=== PATIENT | male | born 1985 | race Caucasian/White ===

== ENCOUNTER 2017-03-15 12:56 | Emergency (ER) | payer SELFPAY ==
[~2017-03-15] VITALS: Ht 182.9 cm; Wt 72.0 kg
[~2017-03-15 12:56] MED LIST: LORA-392 PO; MELO15TA2 PO; ROBA750T3 PO; Z.0.NO CURRENT MEDS
[2017-03-15 12:58] VITALS: BP 123/71; PULSE 69; RESP 16; TEMP 98.6; O2SAT 100
--- NOTE | 2017-03-15 16:24 | PD ---
HPI Chief Complaint: Psychiatric Symptoms Time Seen by Provider: 16:14 Travel History International Travel<30 days: No Contact w/Intl Traveler<30days: No Traveled to known affect area: No History of Present Illness HPI 31-year-old male presents to the emergency department for voluntary psychiatric evaluation. Patient was recently made homeless, has broken out with his girlfriend, and was not allowed on his grandmother's property as she called police. The [place] police recommended the patient come in voluntarily for evaluation. Patient currently denies suicidal or homicidal ideation he denies any significant medical issues. He denies alcohol or drug abuse. He takes no medications regularly. He is allergic to sertraline. 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) Psychiatric: Yes Reproductive: No Respiratory: No Tetanus Vaccination: > 5 Years Past Surgical History Neurologic Surgery: No Other Surgery: Yes Social History Alcohol Use: Yes Tobacco Use: Yes (05/31 PPD) Substance Use: Yes (MJ IV DILAUDID) Allergies-Medications (Allergen,Severity, Reaction): Coded Allergies: sertraline (Unverified Allergy, Severe, Shortness of Breath, 03/15/17) Reported Meds & Prescriptions Reported Meds & Active Scripts Active No Active Prescriptions or Reported Medications Review of Systems Except as stated in HPI: all other systems reviewed are Neg General / Constitutional: No: Fever Eyes: No: Visual changes HENT: No: Headaches Cardiovascular: No: Chest Pain or Discomfort Respiratory: No: Shortness of Breath Gastrointestinal: No: Abdominal Pain Genitourinary: No: Dysuria Musculoskeletal: No: Pain Skin: No Rash Neurologic: No: Weakness Psychiatric: No: Depression Endocrine: No: Polydipsia Hematologic/Lymphatic: No: Easy Bruising Physical Exam Narrative GENERAL: Patient appears no acute distress. SKIN: Warm and dry. Color. Normal turgor. HEAD: Atraumatic. Normocephalic. EYES: Pupils equal and round. No scleral icterus. No injection or drainage. ENT: No nasal bleeding or discharge. Mucous membranes pink and moist. Pharynx is clear. Airway is patent NECK: Trachea midline. Supple nontender. CARDIOVASCULAR: Regular rate and rhythm. No murmurs gallops or rubs. RESPIRATORY: No accessory muscle use. Clear to auscultation. Breath sounds equal bilaterally. GASTROINTESTINAL: Abdomen soft, non-tender, nondistended. Hepatic and splenic margins not palpable. MUSCULOSKELETAL: Extremities without clubbing, cyanosis, or edema. No obvious deformities. NEUROLOGICAL: Awake and alert. No obvious cranial nerve deficits. Motor grossly within normal limits. Five out of 5 muscle strength in the arms and legs. Normal speech. PSYCHIATRIC: Appropriate mood and affect; insight and judgment normal. Data Data Last Documented VS Vital Signs Date Time Temp Pulse Resp B/P (MAP) Pulse Ox O2 Delivery O2 Flow Rate FiO2 03/15/17 17:58 03/15/17 12:58 98.6 69 16 100 Room Air Orders Orders Complete Blood Count With Diff (03/15/17 16:14) Comprehensive Metabolic Panel (03/15/17 16:14) Psych Screen (03/15/17 16:14) Drug Screen, Random Urine (03/15/17 16:14) Labs Laboratory Tests Test 03/15/17 16:30 White Blood Count 7.9 TH/MM3 Red Blood Count 5.51 MIL/MM3 Hemoglobin 14.8 GM/DL Hematocrit 45.2 % Mean Corpuscular Volume 82.1 FL Mean Corpuscular Hemoglobin 26.9 PG Mean Corpuscular Hemoglobin Concent 32.7 % Red Cell Distribution Width 14.1 % Platelet Count 225 TH/MM3 Mean Platelet Volume 7.3 FL Neutrophils (%) (Auto) 47.4 % Lymphocytes (%) (Auto) 35.9 % Monocytes (%) (Auto) 12.4 % Eosinophils (%) (Auto) 3.7 % Basophils (%) (Auto) 0.6 % Neutrophils # (Auto) 3.8 TH/MM3 Lymphocytes # (Auto) 2.9 TH/MM3 Monocytes # (Auto) 1.0 TH/MM3 Eosinophils # (Auto) 0.3 TH/MM3 Basophils # (Auto) 0.0 TH/MM3 CBC Comment DIFF FINAL Differential Comment Blood Urea Nitrogen 20 MG/DL Creatinine 1.04 MG/DL Random Glucose 92 MG/DL Total Protein 7.6 GM/DL Albumin 3.7 GM/DL Calcium Level 9.2 MG/DL Alkaline Phosphatase 63 U/L Aspartate Amino Transf (AST/SGOT) 35 U/L Alanine Aminotransferase (ALT/SGPT) 77 U/L Total Bilirubin 0.5 MG/DL Sodium Level 136 MEQ/L Potassium Level 4.1 MEQ/L Chloride Level 103 MEQ/L Carbon Dioxide Level 24.1 MEQ/L Anion Gap 9 MEQ/L Estimat Glomerular Filtration Rate 84 ML/MIN MDM Medical Decision Making Medical Screen Exam Complete: Yes Emergency Medical Condition: Yes Differential Diagnosis Mood disorder. Depression. Anger issues. Narrative Course Patient is medically stable. Patient is here voluntarily for psychiatric evaluation Labs are ordered per protocol. Psychiatric eval is ordered. Patient is medically cleared for psychiatric evaluation. Patient left the ED prior to psychiatric eval at 1745. As the patient is voluntary he'll be made AMA. Diagnosis Primary Impression: Medical clearance for psychiatric admission Scripts No Active Prescriptions or Reported Meds Disposition: 07 AGAINST MEDICAL ADVICE Condition: Stable Aj Vee Mar 15, 2017 16:24
[2017-03-15 16:48] LABS: AUTOMATED NEUTROPHIL # 3.8 TH/MM3 (1.8-7.7); BASOPHIL % 0.6 % (0.0-2.0); EOSINOPHIL # 0.3 TH/MM3 (0-0.4); EOSINOPHIL % 3.7 % (0.0-4.0); HEMATOCRIT 45.2 % (39.0-51.0); HEMO FLAGS DIFF FINAL; LYMPH % 35.9 % (9.0-44.0); LYMPHOCYTE # 2.9 TH/MM3 (1.0-4.8); MEAN CELL VOLUME 82.1 FL (80.0-100.0); MEAN CORPUSCULAR HEMOGLOBIN 26.9 PG (27.0-34.0); MEAN CORPUSCULAR HGB CONC 32.7 % (32.0-36.0); MONO % 12.4 % (0.0-8.0); NEUT % 47.4 % (16.0-70.0); PLATELET COUNT 225 TH/MM3 (150-450); RED BLOOD COUNT 5.51 MIL/MM3 (4.50-5.90); RED CELL DISTRIBUTION WIDTH 14.1 % (11.6-17.2); WHITE BLOOD COUNT 7.9 TH/MM3 (4.0-11.0)
[2017-03-15 17:04] LABS: ANION GAP 9 MEQ/L (5-15); AST (GOT) 35 U/L (15-37); BICARBONATE 24.1 MEQ/L (21.0-32.0); BLOOD UREA NITROGEN 20 MG/DL (7-18); CHLORIDE 103 MEQ/L (98-107); GLOMERULAR FILTRATION RATE 84 ML/MIN (>89); POTASSIUM 4.1 MEQ/L (3.5-5.1); SODIUM (NA) 136 MEQ/L (136-145)
[2017-03-15 17:05] LABS: ALT (GPT) 77 U/L (12-78)
[2017-03-15 17:07] LABS: ALKALINE PHOSPHATASE 63 U/L (45-117); TOTAL BILIRUBIN ADULT 0.5 MG/DL (0.2-1.0)
== END 2017-03-15 17:59 | disposition left against medical advice (07) ==
LOC: NEPC 12:56
DX: Z53.21 Procedure and treatment not carried out due to patient leaving prior to being seen by health care provider (principal); Z04.6 Encounter for general psychiatric examination, requested by authority; F41.9 Anxiety disorder, unspecified; Z59.0 Homelessness; Z72.0 Tobacco use
CPT/HCPCS: 80053; 85025; 99283

== ENCOUNTER 2017-10-02 14:44 | Emergency (ER) | payer SELFPAY ==
[2017-10-02 14:48] VITALS: BP 138/64; PULSE 77; RESP 16; TEMP 98.6; O2SAT 100
[2017-10-02] MEDS ORDERED: VANCOMYCIN INJ 1,000 MG in SODIUM CHLOR 0.9% 250 ML INJ 250 ML IV ONE (15:30)
--- NOTE | 2017-10-02 15:44 | PD ---
HPI Chief Complaint: Skin Problem Time Seen by Provider: 15:11 Travel History International Travel<30 days: No Contact w/Intl Traveler<30days: No Traveled to known affect area: No History of Present Illness HPI This patient complains of infection in both arms. Patient is an IV drug user and these are injection site misses. He denies fever or drainage. Symptom severity is moderate. He has pain in those areas. No alleviating factors. He has no chest symptoms. No presyncopal symptoms. Duration 1 week. 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) Other Surgery: Yes Social History Alcohol Use: No Tobacco Use: Yes (1 ppd) Substance Use: Yes (IV Adderall this week) Allergies-Medications (Allergen,Severity, Reaction): Coded Allergies: sertraline (Verified Allergy, Severe, Shortness of Breath, 10/02/17) Reported Meds & Prescriptions Reported Meds & Active Scripts Active No Active Prescriptions or Reported Medications Review of Systems General / Constitutional: No: Fever Eyes: No: Visual changes HENT: No: Headaches Cardiovascular: No: Chest Pain or Discomfort Respiratory: No: Shortness of Breath Gastrointestinal: No: Abdominal Pain Genitourinary: No: Dysuria Musculoskeletal: Positive: Pain Skin: No Rash Neurologic: No: Weakness Psychiatric: Positive: Substance Abuse, No: Depression Endocrine: No: Polydipsia Hematologic/Lymphatic: No: Easy Bruising Physical Exam Narrative GENERAL: Well-nourished, well-developed patient in no apparent distress. SKIN: Focused skin assessment reveals no rash and nodules. Skin is Warm and dry. HEAD: Atraumatic. Normocephalic. EYES: Pupils equal and round. No scleral icterus. No injection or drainage. ENT: No nasal bleeding or discharge. Mucous membranes pink and moist. NECK: Trachea midline. No JVD. CARDIOVASCULAR: Regular rate and rhythm. No murmur appreciated. RESPIRATORY: No accessory muscle use. Clear to auscultation. Breath sounds equal bilaterally. GASTROINTESTINAL: Abdomen soft, non-tender, nondistended. Hepatic and splenic margins not palpable. MUSCULOSKELETAL: No obvious deformities. No clubbing. No cyanosis. No edema. Patient has a area of infection on his left forearm. It is 4 cm x 4 cm and circular. It is indurated. There is no fluctuance. No spreading cellulitis. No adenopathy. There is a small area on the right bicep with no fluctuance or drainage. NEUROLOGICAL: Awake and alert. No obvious cranial nerve deficits. Motor grossly within normal limits. Normal speech. PSYCHIATRIC: Appropriate mood and affect; insight and judgment poor . Data Data Last Documented VS Vital Signs Date Time Temp Pulse Resp B/P (MAP) Pulse Ox O2 Delivery O2 Flow Rate FiO2 10/02/17 14:48 98.6 77 16 138/64 (88) 100 Orders Orders Iv Access Insert/Monitor (10/02/17 15:27) Vancomycin Inj (Vancomycin Inj) (10/02/17 15:30) MDM Medical Decision Making Medical Screen Exam Complete: Yes Emergency Medical Condition: Yes Medical Record Reviewed: Yes Differential Diagnosis Abscess, cellulitis, sepsis Narrative Course I have reviewed the patient's electronic medical record. Patient has normal vital signs No fever or tachycardia He does not look septic nor toxic I have no clinical suspicion of endocarditis. He has no history of this and no chest symptoms and no murmur and no fever He has 2 areas of infection on his arms. Neither is amenable to incision and drainage. The left side is larger. Just to be certain, I did a bedside ultrasound of that area. There is no fluid collection to drain. Patient's IV access is challenging as expected Nurse tried 3 times without success My plan was then to place an external jugular IV and give him vancomycin but he refuses to have me try more than one single time which did not work So I have given him injection of clindamycin followed by course of Bactrim and clindamycin Use warm compresses I have asked him to come back in a few days for recheck Diagnosis Primary Impression: Cellulitis of multiple sites of upper arm Additional Instructions: Use warm compresses Take antibiotics Avoid IV drug use Consider [facility] drug rehab services The patient was advised to follow up with their physician and return if they worsen. Recheck on Tuesday Med/Other Pt SpecificInfo: Prescription(s) given Scripts No Active Prescriptions or Reported Meds Disposition: 01 DISCHARGE HOME Condition: Donnell Stroud MD October 02, 2017 15:44
[2017-10-02] MEDS ORDERED: CLINDAMYCIN PHOS 600 MG/4 ML VIAL IM ONE (15:45)
[2017-10-02] MEDS ORDERED: CLIN150C14 PO (16:07)
[2017-10-02] MEDS ORDERED: BACT800T5 PO (16:07)
[2017-10-02] MEDS ORDERED: SUBO2MIS SL (23:43)
[2017-10-03] MEDS ORDERED: MOBI15TA PO (00:54)
== END 2017-10-02 16:27 | disposition home or self-care (01) ==
LOC: PHED 14:44
DX: L03.114 Cellulitis of left upper limb (principal); F41.9 Anxiety disorder, unspecified; F32.9 Major depressive disorder, single episode, unspecified; F17.200 Nicotine dependence, unspecified, uncomplicated; Z88.8 Allergy status to other drugs, medicaments and biological substances
CPT/HCPCS: 96372

== ENCOUNTER 2017-10-02 23:37 | Emergency (ER) | payer SELFPAY ==
[~2017-10-02] VITALS: Ht 182.9 cm; Wt 70.0 kg
[~2017-10-02 23:37] MED LIST changes: +BACT800T5 PO; +CLIN150C14 PO; -LORA-392 PO; -MELO15TA2 PO; -ROBA750T3 PO; -Z.0.NO CURRENT MEDS
[2017-10-02 23:40] VITALS: BP 115/76; PULSE 88; RESP 16; TEMP 98.8; O2SAT 97
[2017-10-02] MEDS ORDERED: SUBO2MIS SL (23:43)
[2017-10-03] MEDS ORDERED: CLINDAMYCIN PHOS 600 MG/4 ML VIAL IM ONE (00:45)
[2017-10-03] MEDS ORDERED: KETOROLAC TROMETHAMINE 60 MG/2 ML (IM) VIAL IM ONE (00:45)
[2017-10-03] MEDS ORDERED: DOXYCYCLINE HYCLATE 100 MG CAP PO ONE (00:45)
[2017-10-03] MEDS ORDERED: TETANUS/DIPHTHERIA TOXOID ADULT 0.5 ML VIAL IM ONE (00:45)
--- NOTE | 2017-10-03 00:47 | PD ---
HPI Chief Complaint: OD/ Ingestion Time Seen by Provider: 00:19 Travel History International Travel<30 days: No Contact w/Intl Traveler<30days: No Traveled to known affect area: No History of Present Illness HPI Patient 32-year-old male complains of painful abscess on the right arm and left arm. Patient states that his symptoms started several days ago. Patient has history IV drug abuse. Patient states that he had fever yesterday. Patient states that was seen in emergency room earlier today and given clindamycin IM injection and prescription for Bactrim and clindamycin. patient has not filled the prescription for Bactrim and clindamycin. Patient was found unresponsive this evening after shot up heroin. EMS was called. Patient was given Narcan with complete resolution of the altered mental status. Patient is awake and alert upon arrival. Patient complained of sharp pain localized to the abscessed area of the knee arms. Patient denies any pain radiation. Patient on a scale of 1-10 the pain is a 9. Patient also complains of insect bites all over the body and extremity. Patient states that he is not up-to-date with TD booster. 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) Psychiatric: Yes Reproductive: No Respiratory: No Influenza Vaccination: No Past Surgical History Neurologic Surgery: Yes (cyst on brain stem) Other Surgery: Yes Social History Alcohol Use: No Tobacco Use: Yes (1 ppd) Substance Use: Yes (Marijuana, Heroin, Adderell) Allergies-Medications (Allergen,Severity, Reaction): Coded Allergies: sertraline (Verified Allergy, Severe, Shortness of Breath, 10/02/17) Reported Meds & Prescriptions Reported Meds & Active Scripts Active Mobic (Meloxicam) 15 Mg Tab 15 Mg PO DAILY Bactrim DS (Sulfamethoxazole-Trimethoprim) 800-160 Mg Tab 1 Tab PO BID Clindamycin (Clindamycin HCl) 150 Mg Cap 300 Mg PO Q6H 10 Days Reported Suboxone Sublingual Film (Buprenorphine-Naloxone Sublingual Film) 2-0.5 Mg Film 1 Film SL Unique ID number required: Review of Systems General / Constitutional: No: Fever Eyes: No: Visual changes HENT: No: Headaches Cardiovascular: No: Chest Pain or Discomfort Respiratory: No: Shortness of Breath Gastrointestinal: No: Abdominal Pain Genitourinary: No: Dysuria Musculoskeletal: No: Pain Skin: No Rash Neurologic: No: Weakness Psychiatric: No: Depression Endocrine: No: Polydipsia Hematologic/Lymphatic: No: Easy Bruising Physical Exam Narrative GENERAL: Well-nourished, well-developed patient. SKIN: Focused skin assessment warm/dry. HEAD: Normocephalic. EYES: No scleral icterus. No injection or drainage. NECK: Supple, trachea midline. No JVD or lymphadenopathy. CARDIOVASCULAR: Regular rate and rhythm without murmurs, gallops, or rubs. RESPIRATORY: Breath sounds equal bilaterally. No accessory muscle use. GASTROINTESTINAL: Abdomen soft, non-tender, nondistended. MUSCULOSKELETAL: No cyanosis, or edema. BACK: Nontender without obvious deformity. No CVA tenderness. Patient has areas of redness swelling tenderness on the left forearm and right upper arm. No induration. The area is firm and tenderness on palpation. Data Data Last Documented VS Vital Signs Date Time Temp Pulse Resp B/P (MAP) Pulse Ox O2 Delivery O2 Flow Rate FiO2 10/02/17 23:40 98.8 88 16 115/76 (89) 97 Orders Orders Doxycycline (Vibramycin) (10/03/17 00:45) Clindamycin Inj (Cleocin Inj) (10/03/17 00:45) Tetanus/Diphtheria Tox Adult (Tetanus/Di (10/03/17 00:45) Ketorolac Inj (Toradol Inj) (10/03/17 00:45) Vancomycin Inj (Vancomycin Inj) (10/03/17 01:00) Ketorolac Inj (Toradol Inj) (10/03/17 01:00) Ed Discharge Order (10/03/17 00:56) [facility] Medical Decision Making Medical Screen Exam Complete: Yes Emergency Medical Condition: Yes Differential Diagnosis Differential diagnosis including cellulitis, abscess. Patient also was given Narcan for heroin overdose tonight. Narrative Course 32-year-old male with painful area of redness swelling tenderness right upper arm and left forearm. History IV drug abuse. Vancomycin 1 g IV. Toradol 30 mg IV. Td booster given. Doxycycline 100 mg p.o. given. Patient was given Narcan for heroine overdose by EMS tonight also. Diagnosis Primary Impression: Cellulitis Qualified Codes: L03.119 - Cellulitis of unspecified part of limb Additional Impression: Drug overdose Qualified Codes: T50.901A - Poisoning by unspecified drugs, medicaments and biological substances, accidental (unintentional), initial encounter Patient Instructions: General Instructions Additional Instructions: Advised patient to continue with with clindamycin and Bactrim DS. Moist compress. Mobic for pain. Return in 2 days for recheck. Med/Other Pt SpecificInfo: No Change to Meds Scripts Meloxicam (Mobic) 15 Mg Tab 15 MG PO DAILY for Pain, #20 TAB 0 Refills Prov: Matteo Patrick MD 10/03/17 Disposition: 01 DISCHARGE HOME Condition: Stable Matteo Patrick MD October 03, 2017 00:47
[2017-10-03] MEDS ORDERED: MOBI15TA PO (00:54)
[2017-10-03] MEDS ORDERED: KETOROLAC TROMETHAMINE 30 MG/ML (IVP) VIAL IV PUSH ONE (01:00)
[2017-10-03] MEDS ORDERED: VANCOMYCIN INJ 1,000 MG in SODIUM CHLOR 0.9% 250 ML INJ 250 ML IV ONE (01:00)
== END 2017-10-03 02:32 | disposition home or self-care (01) ==
LOC: NEPE 23:37
DX: T50.901A Poisoning by unspecified drugs, medicaments and biological substances, accidental (unintentional), initial encounter (principal); L02.414 Cutaneous abscess of left upper limb; L02.413 Cutaneous abscess of right upper limb; F17.200 Nicotine dependence, unspecified, uncomplicated; Z23 Encounter for immunization
CPT/HCPCS: 90471; 90714; 96365; 96375; 99284; J1885; J3370; J7050

== ENCOUNTER 2017-10-05 10:39 | Observation (INO) | payer SELFPAY ==
[~2017-10-05] VITALS: Ht 182.9 cm; Wt 67.2 kg
[~2017-10-05 10:39] MED LIST changes: +MOBI15TA PO; +SUBO2MIS SL
[2017-10-05 10:44] VITALS: BP 122/77; PULSE 65; RESP 16; TEMP 98; O2SAT 99
[2017-10-05] MEDS ORDERED: VANCOMYCIN INJ 1,250 MG in SODIUM CHLOR 0.9% 250 ML INJ 250 ML IV ONE (11:30)
--- NOTE | 2017-10-05 11:36 | PD ---
HPI Chief Complaint: Skin Problem Time Seen by Provider: 11:20 Travel History International Travel<30 days: No Contact w/Intl Traveler<30days: No Traveled to known affect area: No History of Present Illness HPI 32-year-old male presents emergency department with bilateral arm abscesses that have been present for several days. Patient states that he presented to the emergency department a couple of days ago where he was prescribed Bactrim and clindamycin. He states compliance with his medications however, the abscesses have enlarged and become more painful. Says that he was not given pain medication upon last discharge and because of the pain, he used IV drugs after discharge, resulting in an overdose. Patient states that he is trying to get clean and has multiple resources lined up to detox. Said he has had fevers and chills. He does not know the actual temperature. She denies pain elsewhere. 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) Other Surgery: Yes Social History Alcohol Use: No Tobacco Use: Yes (1 ppd) Substance Use: Yes (Marijuana, Heroin, Adderell/IV DRUGS) Allergies-Medications (Allergen,Severity, Reaction): Coded Allergies: codeine (Verified Allergy, Severe, Anaphylaxis, 10/05/17) sertraline (Verified Allergy, Severe, Shortness of Breath, 10/05/17) Reported Meds & Prescriptions Reported Meds & Active Scripts Active Mobic (Meloxicam) 15 Mg Tab 15 Mg PO DAILY Bactrim DS (Sulfamethoxazole-Trimethoprim) 800-160 Mg Tab 1 Tab PO BID Clindamycin (Clindamycin HCl) 150 Mg Cap 300 Mg PO Q6H 10 Days Reported Suboxone Sublingual Film (Buprenorphine-Naloxone Sublingual Film) 2-0.5 Mg Film 1 Film SL Unique ID number required: Review of Systems Except as stated in HPI: all other systems reviewed are Neg Physical Exam Narrative GENERAL: WD, WN in NAD SKIN: Focused skin assessment warm/dry. Left upper extremity-medial aspect of forearm with a 5 cm round fluctuant lesion without central puncta Right upper extremity-10 cm round area of central fluctuance with central puncta Bilateral lower extremities with small ulcerations approximately 1-2 mm, nonbleeding, nonerythematous, consistent with insect bites HEAD: Atraumatic. Normocephalic. EYES: Pupils equal and round. No scleral icterus. No injection or drainage. ENT: No nasal bleeding or discharge. Mucous membranes pink and moist. NECK: Trachea midline. No JVD. CARDIOVASCULAR: Regular rate and rhythm. No murmur appreciated. RESPIRATORY: No accessory muscle use. Clear to auscultation. Breath sounds equal bilaterally. GASTROINTESTINAL: Abdomen soft, non-tender, nondistended. No CVA tenderness MUSCULOSKELETAL: No obvious deformities. No clubbing. No cyanosis. No edema. NEUROLOGICAL: Awake and alert. No obvious cranial nerve deficits. Motor grossly within normal limits. Normal speech. PSYCHIATRIC: Appropriate mood and affect; insight and judgment normal. Data Data Last Documented VS Vital Signs Date Time Temp Pulse Resp B/P (MAP) Pulse Ox O2 Delivery O2 Flow Rate FiO2 10/05/17 10:44 98.0 65 16 122/77 (92) 99 Orders Orders Complete Blood Count With Diff (10/05/17 11:20) Blood Culture (10/05/17 11:20) Iv Access Insert/Monitor (10/05/17 11:20) Vancomycin Inj (Vancomycin Inj) (10/05/17 11:30) Comprehensive Metabolic Panel (10/05/17 11:24) Acetamin-Hydrocod 325-5 Mg ([place] 5-325 (10/05/17 12:45) Labs Laboratory Tests Test 10/05/17 11:25 10/05/17 11:30 White Blood Count 13.6 TH/MM3 Red Blood Count 5.43 MIL/MM3 Hemoglobin 14.6 GM/DL Hematocrit 43.4 % Mean Corpuscular Volume 80.0 FL Mean Corpuscular Hemoglobin 26.8 PG Mean Corpuscular Hemoglobin Concent 33.5 % Red Cell Distribution Width 13.3 % Platelet Count 317 TH/MM3 Mean Platelet Volume 7.7 FL Neutrophils (%) (Auto) 73.9 % Lymphocytes (%) (Auto) 11.4 % Monocytes (%) (Auto) 10.2 % Eosinophils (%) (Auto) 0.9 % Basophils (%) (Auto) 3.6 % Neutrophils # (Auto) 10.0 TH/MM3 Lymphocytes # (Auto) 1.6 TH/MM3 Monocytes # (Auto) 1.4 TH/MM3 Eosinophils # (Auto) 0.1 TH/MM3 Basophils # (Auto) 0.5 TH/MM3 CBC Comment DIFF FINAL Differential Comment Blood Urea Nitrogen 17 MG/DL Creatinine 1.20 MG/DL Random Glucose 88 MG/DL Total Protein 7.4 GM/DL Albumin 3.2 GM/DL Calcium Level 8.8 MG/DL Alkaline Phosphatase 56 U/L Aspartate Amino Transf (AST/SGOT) 19 U/L Alanine Aminotransferase (ALT/SGPT) 24 U/L Total Bilirubin 0.4 MG/DL Sodium Level 138 MEQ/L Potassium Level 5.0 MEQ/L Chloride Level 106 MEQ/L Carbon Dioxide Level 27.7 MEQ/L Anion Gap 4 MEQ/L Estimat Glomerular Filtration Rate 71 ML/MIN MDM Medical Decision Making Medical Screen Exam Complete: Yes Emergency Medical Condition: Yes Differential Diagnosis Failed outpatient treatment, cellulitis, abscess Narrative Course 32-year-old male presents emergency department for evaluation of bilateral upper extremity abscesses, failed outpatient therapy and subjective fevers and chills. Vital signs are stable. Incision and drainage performed on the left forearm. The right bicep abscess began draining spontaneously. Vancomycin administered IV. Hydrocodone for pain. Patient does have leukocytosis. Patient will be admitted for failed outpatient treatment for bilateral upper extremity abscesses. I spoke with Dr. Joe who agreed to the admission. Procedures Procedure Narrative INCISION AND DRAINAGE OF ABSCESS: The area of the left forearm was prepped and was sterilely draped. A subcutaneous wheal of 1% % Xylocaine without epinephrine with a total number 3 mL was used to anesthetize the area properly. A number 11 scalpel was used to make 2 1 -cm incision across the area of the abscess. The abscess was drained, complex loculations were broken down, and irrigated with normal saline. Quarter inch iodoform packing was placed in the wound. Sterile dressing applied. Patient advised to have packing removed in two days. Diagnosis Primary Impression: Cellulitis Qualified Codes: L03.119 - Cellulitis of unspecified part of limb Additional Impression: Abscess Admitting Information Admitting Physician Requests: Observation Disposition: 01 DISCHARGE HOME Condition: Stable Kathy Haro October 05, 2017 11:36
[2017-10-05 11:41] LABS: BASOPHIL # 0.5 TH/MM3 (0-0.2); BASOPHIL % 3.6 % (0.0-2.0); EOSINOPHIL # 0.1 TH/MM3 (0-0.4); EOSINOPHIL % 0.9 % (0.0-4.0); HEMATOCRIT 43.4 % (39.0-51.0); HEMOGLOBIN 14.6 GM/DL (13.0-17.0); LYMPH % 11.4 % (9.0-44.0); LYMPHOCYTE # 1.6 TH/MM3 (1.0-4.8); MEAN CORPUSCULAR HEMOGLOBIN 26.8 PG (27.0-34.0); MEAN CORPUSCULAR HGB CONC 33.5 % (32.0-36.0); MEAN PLATELET VOLUME 7.7 FL (7.0-11.0); MONO % 10.2 % (0.0-8.0); MONOCYTE # 1.4 TH/MM3 (0-0.9); NEUT % 73.9 % (16.0-70.0); PLATELET COUNT 317 TH/MM3 (150-450); RED BLOOD COUNT 5.43 MIL/MM3 (4.50-5.90); RED CELL DISTRIBUTION WIDTH 13.3 % (11.6-17.2); WHITE BLOOD COUNT 13.6 TH/MM3 (4.0-11.0)
[2017-10-05 11:51] LABS: CHLORIDE 106 MEQ/L (98-107); SODIUM (NA) 138 MEQ/L (136-145)
[2017-10-05 11:54] LABS: ALBUMIN 3.2 GM/DL (3.4-5.0); BICARBONATE 27.7 MEQ/L (21.0-32.0); BLOOD UREA NITROGEN 17 MG/DL (7-18); CALCIUM 8.8 MG/DL (8.5-10.1); GLUCOSE,RANDOM 88 MG/DL (74-106)
[2017-10-05 11:57] LABS: ALT (GPT) 24 U/L (12-78); AST (GOT) 19 U/L (15-37); GLOMERULAR FILTRATION RATE 71 ML/MIN (>89)
[2017-10-05 11:59] LABS: TOTAL BILIRUBIN ADULT 0.4 MG/DL (0.2-1.0); TOTAL PROTEIN 7.4 GM/DL (6.4-8.2)
[2017-10-05 12:00] LABS: ALKALINE PHOSPHATASE 56 U/L (45-117)
[2017-10-05] MEDS ORDERED: ACETAMINOPHEN/HYDROcodone 325 MG/5 MG TAB PO ONE (12:45)
[2017-10-05 13:57] VITALS: BP 114/51; PULSE 51; RESP 16; O2SAT 100
[2017-10-05] MEDS ORDERED: BISACODYL 10 MG SUPP RECTAL PRN (14:15)
[2017-10-05] MEDS ORDERED: NALOXONE HCL 0.4 MG/ML AMP IV PUSH PRN (14:15)
[2017-10-05] MEDS ORDERED: Vancomycin Consult Pharmacy 1 EA OTHER SCH (14:15)
[2017-10-05] MEDS ORDERED: SODIUM CHLORIDE 0.9% FLUSH 10 ML FLUSH IV FLUSH PRN (14:15)
[2017-10-05] MEDS ORDERED: ACETAMINOPHEN 325 MG TAB PO PRN (14:15)
[2017-10-05] MEDS ORDERED: LACTULOSE SYRUP 20 GM/30 ML CUP PO PRN (15:00)
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
[2017-10-05] MEDS: SODIUM CHLOR 0.9% 1000 ML INJ 1,000 ML IV SCH ×2 (15:22→23:25)
[2017-10-05 15:50] VITALS: BP 105/51; PULSE 50; RESP 20; TEMP 97.5; O2SAT 98
[2017-10-05] MEDS: ACETAMINOPHEN/HYDROcodone 325 MG/5 MG TAB PO PRN ×2 (17:34→23:13)
[2017-10-05] MEDS ORDERED: ONDANSETRON HCL 4 MG/2 ML VIAL IVP PRN (18:00)
[2017-10-05 20:00] VITALS: BP 117/66; PULSE 52; RESP 18; TEMP 97.6; O2SAT 98
[2017-10-05] MEDS: DOCUSATE SODIUM 50 MG/SENNA 8.6 MG TAB PO SCH (20:24)
[2017-10-05] MEDS: SODIUM CHLORIDE 0.9% FLUSH 10 ML FLUSH IV FLUSH SCH (20:24)
[2017-10-05] MEDS ORDERED: SENNOSIDES 8.6 MG TAB PO PRN (21:00)
[2017-10-05] MEDS ORDERED: MAGNESIUM HYDROXIDE SUSP 30 ML CUP PO PRN (21:00)
[2017-10-06] VITALS: BP 131/57; PULSE 52; RESP 18; TEMP 96; O2SAT 100
[2017-10-06] MEDS ORDERED: VANCOMYCIN 1,000 MG/NS 250 ML IV SCH ×2
[2017-10-06 07:50] VITALS: BP 107/57; PULSE 46; RESP 20; TEMP 96.5; O2SAT 99
[2017-10-06 08:43] LABS: AUTOMATED NEUTROPHIL # 4.6 TH/MM3 (1.8-7.7); BASOPHIL # 0.1 TH/MM3 (0-0.2); BASOPHIL % 1.1 % (0.0-2.0); EOSINOPHIL # 0.3 TH/MM3 (0-0.4); EOSINOPHIL % 4.2 % (0.0-4.0); HEMATOCRIT 39.1 % (39.0-51.0); HEMOGLOBIN 13.1 GM/DL (13.0-17.0); LYMPH % 21.5 % (9.0-44.0); LYMPHOCYTE # 1.6 TH/MM3 (1.0-4.8); MEAN CORPUSCULAR HGB CONC 33.4 % (32.0-36.0); MEAN PLATELET VOLUME 7.6 FL (7.0-11.0); MONO % 9.7 % (0.0-8.0); MONOCYTE # 0.7 TH/MM3 (0-0.9); NEUT % 63.5 % (16.0-70.0); PLATELET COUNT 286 TH/MM3 (150-450); RED BLOOD COUNT 4.83 MIL/MM3 (4.50-5.90); RED CELL DISTRIBUTION WIDTH 13.8 % (11.6-17.2); WHITE BLOOD COUNT 7.3 TH/MM3 (4.0-11.0)
[2017-10-06 08:52] LABS: CALCIUM 8.5 MG/DL (8.5-10.1)
[2017-10-06 08:53] LABS: BICARBONATE 27.6 MEQ/L (21.0-32.0)
[2017-10-06 08:56] LABS: CREATININE 0.99 MG/DL (0.60-1.30)
[2017-10-06] MEDS: ACETAMINOPHEN/HYDROcodone 325 MG/5 MG TAB PO PRN (08:59)
[2017-10-06] MEDS: SODIUM CHLORIDE 0.9% FLUSH 10 ML FLUSH IV FLUSH SCH (08:59)
[2017-10-06] MEDS: DOCUSATE SODIUM 50 MG/SENNA 8.6 MG TAB PO SCH (08:59)
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
[2017-10-06] MEDS ORDERED: DOXY100C PO (09:04)
[2017-10-06] MEDS ORDERED: BACT800T5 PO (09:04)
[2017-10-06] MEDS ORDERED: HYDR-3516 PO (09:04)
--- NOTE | 2017-10-06 09:12 | HHI.DS ---
Discharge Summary Admission Date October 05, 2017 at 13:13 Discharge Date: October 06, 2017 Admitting Diagnosis B/L arm abscesses failed outpatient abx (1) Abscess ICD Code: L02.91 - Cutaneous abscess, unspecified Diagnosis: Principal Status: Acute (2) Cellulitis ICD Code: L03.90 - Cellulitis, unspecified Diagnosis: Principal Status: Acute Procedures None Brief History - From Admission 32-year-old male with known history of IV drug use who presented the hospital because of bilateral arm abscess. Patient states that he had been clean for approximately 4 years and he went through a breakup with his girlfriend and went to a friend's house who injected him with Ritalin and ice. Patient states that he was out of it for a while and then he started noticing painful lumps in his right bicep and left forearm. He came to emergency department on October 02, 2017 in which she was prescribed doxycycline and Bactrim. Patient was taking medication as directed. When he woke up this morning the area in his right arm opened up and started draining. Because of that he came to emergency department for evaluation. Patient denies any fever, chills. Patient had incision and drainage performed of the left forearm abscess. Patient had mild leukocytosis. Because of those reasons it was recommended by the ER physician that the patient be observed in the hospital for continued management. CBC/BMP: 10/06/17 0815 10/06/17 0815 Significant Findings Laboratory Tests Test 10/05/17 11:25 10/05/17 11:30 10/06/17 08:15 White Blood Count 13.6 TH/MM3 (4.0-11.0) Mean Corpuscular Hemoglobin 26.8 PG (27.0-34.0) Neutrophils (%) (Auto) 73.9 % (16.0-70.0) Monocytes (%) (Auto) 10.2 % (0.0-8.0) 9.7 % (0.0-8.0) Basophils (%) (Auto) 3.6 % (0.0-2.0) Neutrophils # (Auto) 10.0 TH/MM3 (1.8-7.7) Monocytes # (Auto) 1.4 TH/MM3 (0-0.9) Basophils # (Auto) 0.5 TH/MM3 (0-0.2) Albumin 3.2 GM/DL (3.4-5.0) Anion Gap 4 MEQ/L (5-15) 4 MEQ/L (5-15) Estimat Glomerular Filtration Rate 71 ML/MIN (>89) Eosinophils (%) (Auto) 4.2 % (0.0-4.0) Chloride Level 111 MEQ/L (98-107) PE at Discharge GENERAL: Well-developed, well-nourished, in no acute distress. alert and orientated HEENT: Head is normocephalic without any lesions or masses noted. Facial features are symmetric. Eyes: Extraocular muscles are intact. Conjunctivae were clear. NECK: Supple without any masses. Trachea midline no deviation. No JVD, CARDIAC: Regular rhythm, regular rate. S1/S2 are heard. No murmurs gallops or rubs. LUNGS: Clear to auscultation bilaterally. No wheeze, rhonchi or rales. No use of accessory muscles on inspiration or expiration. ABDOMEN: Soft, nontender. Nondistended. Bowel sounds heard in all 4 quadrants. No organomegaly or masses. Negative rebound, negative guarding EXTREMITIES: No edema, pulses are equal bilaterally. No cyanosis or clubbing NEUROLOGY: Mood and affect appear appropriate. Cranial nerves II through XII grossly intact. Moving all extremities, speech is clear RIGHT UPPER EXTREMITY: Bicep does reveal cellulitis measuring on the anterior surface of his bicep from his deltoid down to the bicep head. Cellulitis has significantly improved. No more expressible exudate. LEFT UPPER EXTREMITY: Left forearm reveals cellulitis significantly improved. Edema has improved. Hospital Course 32-year-old male with known history of IV drug use who did inject himself approximately 2 weeks ago and subsequently after that started developing cellulitis and swelling in his right bicep and left forearm. He came to emergency department 4 days ago and was started on Bactrim and clindamycin with improvement of his cellulitis, however the right bicep wound did start to drain exited so he came to emergency department for evaluation. Patient did undergo incision and drainage in the emergency department on the left forearm. It was recommended by ER physician the patient be observed in the hospital overnight. During his stay in the hospital he received vancomycin IV. He tolerated treatment well. Both areas of cellulitis and abscess have significantly improved. No more exudative material in the right bicep. Left forearm has significant improvement with edema and cellulitis. Patient is very eager to go home. Patient indicates that he plans on living with his grandmother who is a nurse who will be able to manage his bandages for him. Patient clinically stable, we will plan discharge accordingly. Pt Condition on Discharge: Stable Discharge Disposition: Discharge Home Discharge Time: > 30 minutes Discharge Instructions DIET: Follow Instructions for: As Tolerated, No Restrictions Activities you can perform: Regular-No Restrictions Follow up Referrals: PCP Follow-up - 1 Week New Medications: Doxycycline Hyclate (Doxycycline Hyclate) 100 Mg Cap 100 MG PO BID for Infection, #20 CAP 0 Refills Hydrocodone/Acetaminophen (Hydrocodone-Acetamin 5-325 mg) 5 Mg-325 Mg Tablet 1 TAB PO Q6H PRN for Pain for 3 Days, #12 TAB Continued Medications: Sulfamethoxazole-Trimethoprim (Bactrim DS) 800-160 Mg Tab 1 TAB PO BID for Infection, #20 TAB 0 Refills (This prescription has been renewed) Discontinued Medications: Buprenorphine-Naloxone Sublingual Film (Suboxone Sublingual Film) 2-0.5 Mg Film 1 FILM SL, FILM Unique ID number required: Clindamycin (Clindamycin) 150 Mg Cap 300 MG PO Q6H for Infection for 10 Days, #80 CAP 0 Refills Meloxicam (Mobic) 15 Mg Tab 15 MG PO DAILY for Pain, #20 TAB 0 Refills Donnell Sandoval October 06, 2017 09:12
[2017-10-07] MEDS ORDERED: PHARMACY ORDERED LAB ONE (11:45)
== END 2017-10-06 10:04 | disposition home or self-care (01) ==
LOC: PHED 10:39 → PHEDA 13:13 → PH3B 14:04
PROVIDERS: ADMIT Hospitalist; ATTEND Hospitalist
DX: L02.413 Cutaneous abscess of right upper limb (principal); L02.414 Cutaneous abscess of left upper limb; F41.9 Anxiety disorder, unspecified; F32.9 Major depressive disorder, single episode, unspecified; F17.210 Nicotine dependence, cigarettes, uncomplicated
CPT/HCPCS: 10060; 80048; 80053; 85025; 87040; 96361; 96365; 96366; 99285; G0378; J3370; J7030; J7050

== ENCOUNTER 2018-07-15 20:45 | Inpatient (IN) ==
[2018-07-15] MEDS ORDERED: Lidocaine 1% Inj 50 ML Vial INFILTRATN ONE (22:12)
[2018-07-15] MEDS ORDERED: Clindamycin 900 mg/NS Premix 900 MG/50 ML PIGGYBACK IV.SIG ONE (22:12)
[2018-07-15] MEDS ORDERED: Sod Chloride 0.9% Inj 1,000 ML IV.SIG SCH (22:15)
[2018-07-15] MEDS ORDERED: Ketorolac Inj 30 MG/ML (IVP) Vial IV.PUSH ONE (22:18)
--- NOTE | 2018-07-15 22:24 | ED ---
HPI General Chief complaint: Skin/Abscess/Foreign Body Stated complaint: 'bug bite" x1 wk Time Seen by Provider: 07/15/18 22:12 Source: patient Mode of arrival: ambulatory Limitations: no limitations History of Present Illness HPI narrative: 33-year-old male presents to the emergency department by private transportation for evaluation of abscess to the right wrist. Patient states approximately 1 week ago he was camping and reports that he sustained multiple spider bites to the right wrist radial aspect. Patient now has swelling of the right hand does not complain of any pain into the digits or numbness tingling or weakness of the hand or digits. Patient states that he tried to express the abscess of his right wrist and since that time symptoms have worsened. Patient has had subjective fever no chills denies any ascending erythema or axillary tenderness or lymphadenopathy. Patient takes Suboxone and denies any IV drug use for 2 weeks. Patient has no history of valvular heart disease or heart murmur. Patient's had no shortness of breath. Patient presents now due to drainage from the right wrist and an ulcerating lesion. complaint: Reports rash and abscess/boil Onset (ago): week(s) (1) Tetanus Immunization: <5 Years (10/03/2017) Location: Reports RUE (wrist) and R hand Severity: moderate Severity scale (1-10): 5 Quality: Reports burning and aching Pain Consistency: constant Relieving factors: none Exacerbating factors: palpation and movement Context: Reports recent camping ("spider bites") Associated symptoms: Reports fever (subjective); Denies chills, rigors, itching , nausea, vomiting, malaise, arthralgias, myalgias, cough and shortness of breath Treatments prior to arrival: Reports bandages and attempted to drain pus at home Related Data Home Medications Medication Instructions Recorded Confirmed buprenorphine-naloxone [Suboxone] 1 dose SUBLINGUAL DAILY 07/15/18 07/15/18 Allergies Allergy/AdvReac Type Severity Reaction Status Date / Time codeine Allergy Severe Anaphylaxis Verified 07/15/18 22:15 sertraline Allergy Severe Shortness Verified 07/15/18 22:15 of Breath Review of Systems ROS: all other systems reviewed are negative PMFSH History History Provided By: Patient and Medical Record (IVDA) Medical History Medical History History of cyst of brain (Acute) Surgical History Surgical History History of surgery on arm (Acute) Social History Social History Substance History: Active Abuse Smoking Status: Current every day smoker Tobacco Type: Cigarettes How Often Do You Have a Drink Containing Alcohol: Never Recent Travel in [facility] within the Last 8 Weeks: No Recent Out of Country Travel within the Last 8 Weeks: No Exam Narrative Exam Narrative: GENERAL: Well-nourished, well-developed patient. No acute distress no respiratory distress GCS 15 triage vital signs blood pressure 130/ 71 heart rate 98 and regular respirations 18 and nonlabored temperature 98.8F room air O2 saturation 96% SKIN: Focused skin assessment warm/dry. Attention right upper extremity no ascending erythema or axillary lymphadenopathy erythema and induration of the radial aspect of the right wrist proximal to the anatomical snuffbox with scab overlying area of fluctuance 3cm x 3 cm, erythema 14 cm x 8 cm and fluctuance noted and is noted for soft tissue swelling blanching on attempted full flexion but has intact flexion and extension with thumb apposition and capillary refill brisk and less than 2 seconds sensory exam is intact no pain on flexion extension of the digits actively or passively. No splinter hemorrhages no petechia. HEAD: Normocephalic. EYES: No scleral icterus. No injection or drainage. NECK: Supple, trachea midline. No JVD or lymphadenopathy. CARDIOVASCULAR: Regular rate and rhythm without murmurs, gallops, or rubs. No murmur to auscultation peer RESPIRATORY: Breath sounds equal bilaterally. No accessory muscle use. GASTROINTESTINAL: Abdomen soft, non-tender, nondistended. MUSCULOSKELETAL: No cyanosis, or edema. BACK: Nontender without obvious deformity. No CVA tenderness. Procedures Abscess I/D Abscess 1: Site: upper extremity (right wrist) Side (if applicable): right Anesthetic used: lidocaine 1% Technique: incised with #11 blade Amount of fluid expressed (mL): 3 Irrigation: Yes Packing used?: iodoform Course Initial Documented Vital Signs Temperature 99.8 F H 07/15/18 21:49 Pulse Rate 98 H 07/15/18 21:49 Respiratory Rate 18 07/15/18 21:49 Blood Pressure 130/71 07/15/18 21:49 Pulse Oximetry 96 07/15/18 21:49 Last Documented Vital Signs Temperature 99.8 F H 07/15/18 21:49 Pulse Rate 74 07/16/18 00:50 Respiratory Rate 16 07/16/18 00:50 Blood Pressure 115/66 07/16/18 00:50 Pulse Oximetry 97 07/16/18 00:50 Medical Decision Making MDM Narrative Medical decision making narrative: Patient with abscess and of the right wrist and cellulitis of the associated soft tissue swelling wrist abscess appears fluctuant. Patient reports no IV drug use to the site no injection to the site and last IV drug use reportedly was 2 weeks ago and is reportedly prescribed Suboxone that he takes orally. Patient is presently afebrile but does have temperature elevation of 99.8 F pulse is 98 respirations are 18 and nonlabored blood pressure is stable patient appears to be in no extremis remainder of exam is unremarkable evidence of old IV drug abuse scars are present in the extremities no evidence of areas of induration erythema or fluctuance or pustules are noted. IV access obtained specimens collected and sent for resulting discussed with patient I&D of the right wrist which patient is amenable. Patient's tetanus status is current as of 10/03/17 patient will be given IV fluids IV clindamycin and vancomycin. Medical Screen Exam Complete: Yes Emergency Medical Condition: Yes Differential Diagnosis Differential Diagnosis: Cellulitis, abscess, tenosynovitis, osteomyeitis, endocarditis, sepsis, retained foreign body, IVDA Medical Records Medical records reviewed: Yes I reviewed the patient's medical records. Lab Data Result diagrams: 07/15/18 23:05 07/15/18 23:05 Lab Results 07/15/18 07/15/18 07/15/18 Range/Units 23:05 23:05 23:05 CBC w Diff Auto diff final WBC 24.3 H (4.0-11.0) th/mm3 RBC 4.41 L (4.50-5.90) mil/mm3 Hgb 12.1 L (13.0-17.0) gm/dL Hct 36.1 L (39.0-51.0) % MCV 81.8 (80.0-100.0) fL MCH 27.4 (27.0-34.0) pg MCHC 33.4 (32.0-36.0) % RDW 13.0 (11.6-17.2) % Plt Count 306 (150-450) th/mm3 MPV 7.0 (7.0-11.0) fL Neut % (Auto) 78.7 H (16.0-70.0) % Lymph % (Auto) 12.5 (9.0-44.0) % Phillips % (Auto) 7.9 (0.0-8.0) % Eos % (Auto) 0.4 (0.0-4.0) % Baso % (Auto) 0.5 (0.0-2.0) % Neut # (Auto) 19.2 H (1.8-7.7) th/mm3 Lymph # (Auto) 3.0 (1.0-4.8) th/mm3 Phillips # (Auto) 1.9 H (0.0-0.9) th/mm3 Eos # (Auto) 0.1 (0.0-0.4) th/mm3 Baso # (Auto) 0.1 (0.0-0.2) th/mm3 WBC Differential . Differential Comment . Sodium 135 L (136-145) meq/L Potassium 3.9 (3.5-5.1) meq/L Chloride 100 (98-107) meq/L Carbon Dioxide 30.3 (21.0-32.0) meq/L Anion Gap 5 (5-15) meq/L BUN 11 (7-18) mg/dL Creatinine 0.93 (0.60-1.30) mg/dL Estimated GFR Greater than 89 (>89) mL/min Random Glucose 115 H (74-106) mg/dL Lactic Acid 0.8 (0.4-2.0) mmol/L Calcium 8.7 (8.5-10.1) mg/dL Imaging Data Radiologist's impression: Wrist X-Ray 07/15/18 22:12 CONCLUSION: Extensive soft tissue swelling on the dorsum of the hand. Remote healed fracture of the fifth metacarpal. Discharge Plan Discharge Disposition Patient Disposition: ED Admit(ED Internal Use Only) Discharge Condition Condition: Stable Discharge Details Diagnosis: Abscess or cellulitis of wrist, Sepsis Physicians Team ED Provider: Michela Fu Primary Care Provider: Primary Care Physici,No Rxs /Orders / Referrals /Forms Prescriptions: No Action buprenorphine-naloxone [Suboxone] 2-0.5 mg Film 1 dose Sublingual DAILY RF: 0 Discharge Interventions Interventions: Vital Signs Last Done: 07/16/18 00:50 Status ED Status: With Doctor
--- NOTE | 2018-07-15 22:39 | XR ---
EXAM DATE: 07/15/2018 10:33 PM EST AGE/SEX: 33 years / Male INDICATIONS: Right wrist swelling and pain. Wrist is hot to the touch. CLINICAL DATA: This is the patient's initial encounter. Patient reports that signs and symptoms have been present for 1 week and indicates a pain score of 10/10. MEDICAL/SURGICAL HISTORY: . Smoker. None. COMPARISON: No prior exams available for comparison. FINDINGS: There is a remote fracture of the fifth metacarpal residual angular deformity. No acute fractures see n. There is fairly extensive soft tissue swelling on the dorsum of the hand. No bony destructive mast ges or abnormal periosteal reaction. CONCLUSION: Extensive soft tissue swelling on the dorsum of the hand. Remote healed fracture of the fifth metacar pal. Electronically signed by: Gabriel Wright MD Board Certified Radiologist 07/15/2018 10:38 PM EST
[2018-07-15 23:18] LABS: Baso # (Auto) 0.1 th/mm3 (0.0-0.2); Baso % (Auto) 0.5 % (0.0-2.0); Eos # (Auto) 0.1 th/mm3 (0.0-0.4); Eos % (Auto) 0.4 % (0.0-4.0); Hematocrit 36.1 % (39.0-51.0); Hemoglobin 12.1 gm/dL (13.0-17.0); Lymph % (Auto) 12.5 % (9.0-44.0); Mean Corpuscular HGB Conc 33.4 % (32.0-36.0); Mean Corpuscular Hemoglobin 27.4 pg (27.0-34.0); Mean Corpuscular Volume 81.8 fL (80.0-100.0); Mono # (Auto) 1.9 th/mm3 (0.0-0.9); Mono % (Auto) 7.9 % (0.0-8.0); Neut # (Auto) 19.2 th/mm3 (1.8-7.7); Neut % (Auto) 78.7 % (16.0-70.0); Platelet Count 306 th/mm3 (150-450); Red Blood Count 4.41 mil/mm3 (4.50-5.90); White Blood Count 24.3 th/mm3 (4.0-11.0)
[2018-07-15 23:31] LABS: Chloride 100 meq/L (98-107); Potassium 3.9 meq/L (3.5-5.1); Sodium 135 meq/L (136-145)
[2018-07-15 23:33] LABS: Calcium 8.7 mg/dL (8.5-10.1)
[2018-07-15 23:34] LABS: Anion Gap 5 meq/L (5-15); Blood Urea Nitrogen 11 mg/dL (7-18); Carbon Dioxide 30.3 meq/L (21.0-32.0); Glucose,Random 115 mg/dL (74-106)
[2018-07-15 23:37] LABS: Glomerular Filtration Rate Greater Than 89 mL/min (>89)
[2018-07-16] MEDS ORDERED: Vancomycin Inj 1,000 MG in Sodium Chlor 0.9% Inj 250 ML IV.SIG ONE (00:24)
[2018-07-16] MEDS ORDERED: Sod Chloride 0.9% Inj 1,000 ML IV.SIG SCH (00:30)
[2018-07-16] MEDS ORDERED: Naloxone Inj 0.4 MG/ML Vial IV.PUSH PRN (00:51)
[2018-07-16] MEDS ORDERED: Vancomycin Consult Pharmacy OTHER PRN ×2 (00:51→01:02)
[2018-07-16] MEDS ORDERED: Acetaminophen 325 MG Tablet PO PRN (00:51)
[2018-07-16] MEDS ORDERED: Bisacodyl 10 MG Supp RECTAL PRN (00:51)
[2018-07-16] MEDS: Sod Chloride 0.9% Inj 1,000 ML IV.CONT SCH ×2 (03:00→14:08)
[2018-07-16] MEDS ORDERED: Vancomycin Inj 1,500 MG in Sodium Chlor 0.9% Inj 500 ML IV.SIG SCH ×2 (04:00→08:00)
[2018-07-16 04:38] LABS: Amphetamine Screen,Urine Neg (Neg); Barbiturate Screen,Urine Neg (Neg); Cocaine Screen,Urine Pos (Neg)
[2018-07-16 04:39] LABS: Cannabinoid Screen,Urine Pos (Neg)
[2018-07-16 04:43] LABS: Opiate Screen,Urine Pos (Neg)
[2018-07-16 06:10] LABS: Chloride 105 meq/L (98-107); Potassium 3.8 meq/L (3.5-5.1); Sodium 137 meq/L (136-145)
[2018-07-16 06:11] LABS: Baso # (Auto) 0.7 th/mm3 (0.0-0.2); Baso % (Auto) 4.5 % (0.0-2.0); Eos # (Auto) 0.2 th/mm3 (0.0-0.4); Hematocrit 37.9 % (39.0-51.0); Hemoglobin 12.1 gm/dL (13.0-17.0); Lymph # (Auto) 2.1 th/mm3 (1.0-4.8); Lymph % (Auto) 13.4 % (9.0-44.0); Mean Corpuscular Hemoglobin 26.8 pg (27.0-34.0); Mean Corpuscular Volume 83.8 fL (80.0-100.0); Mean Platelet Volume 7.6 fL (7.0-11.0); Mono # (Auto) 1.7 th/mm3 (0.0-0.9); Mono % (Auto) 10.6 % (0.0-8.0); Neut # (Auto) 11.2 th/mm3 (1.8-7.7); Neut % (Auto) 70.5 % (16.0-70.0); Platelet Count 236 th/mm3 (150-450); Red Blood Count 4.52 mil/mm3 (4.50-5.90); Red Cell Distribution Width 13.8 % (11.6-17.2); White Blood Count 15.9 th/mm3 (4.0-11.0)
[2018-07-16 06:16] LABS: Albumin 2.8 g/dL (3.4-5.0); Anion Gap 5 meq/L (5-15); Carbon Dioxide 26.9 meq/L (21.0-32.0); Glucose,Random 114 mg/dL (74-106)
[2018-07-16 06:17] LABS: Blood Urea Nitrogen 10 mg/dL (7-18)
[2018-07-16 06:19] LABS: Alanine Aminotransferase 39 U/L (12-78)
[2018-07-16 06:20] LABS: Aspartate Aminotransferase 23 U/L (15-37); Glomerular Filtration Rate Greater Than 89 mL/min (>89)
[2018-07-16 06:21] LABS: Total Protein 6.5 g/dL (6.4-8.2)
[2018-07-16 06:22] LABS: Alkaline Phosphatase 63 U/L (45-117)
[2018-07-16 06:38] LABS: Platelet Estimate Normal (Normal); Platelet Morphology Normal (Normal)
[2018-07-16] MEDS ORDERED: Senna/Docusate Sodium 8.6/50 MG Tablet PO SCH (09:00)
[2018-07-16 12:08] VITALS: O2SAT 96
[2018-07-16] MEDS ORDERED: Gadobutrol PF 7.5 MMOL/7.5 ML Vial (for RAD) IV.SIG ONE (15:24)
--- NOTE | 2018-07-16 15:55 | MR ---
EXAM DATE: 07/16/2018 3:39 PM EST AGE/SEX: 33 years / Male INDICATIONS: Abscess. CLINICAL DATA: This is the patient's initial encounter. Patient reports that signs and symptoms have been present for 1 day and indicates a pain score of 6/10. MEDICAL/SURGICAL HISTORY: . IVDA. . Arm surgery. COMPARISON: No prior exams available for comparison. TECHNIQUE: Multiplanar, multisequence MRI examination was performed without contrast and after intra venous administration of 7 ml Gadavist (gadobutrol) contrast as a single exam dose. FINDINGS: There are numerous enhancing superficial fluid collections distributed over the distal forearm, wrist and dorsal soft tissues of the hand. The largest fluid collection is on the dorsal radial aspect of the distal forearm and wrist and extends over a length of 6.3 cm with a diameter of 1.2 cm. There are numerous linear enhancing fluid collections on the dorsum of the metacarpal region of the hand mostl y superficial to the extensor tendons but there is some extension of abscess slightly deep to the ext ensor tendons. An 11 mm focal abscess is seen on the final image at the fourth metacarpophalangeal umair int. Extensive edematous changes are present. There is a wrist joint effusion. No significant marrow edema is seen to suggest osteomyelitis at this time. No acute fracture or dislocation. CONCLUSION: 1. Extensive abscess formation in the soft tissues of the distal forearm, wrist and metacarpal regio n of the hand with some measurements given above. The abscesses extend both superficial and deep to t he extensor tendons overlying the metacarpals. There is a wrist joint effusion. No definite evidence for osteomyelitis. Electronically signed by: Gabriel Wright MD Board Certified Radiologist 07/16/2018 3:54 PM EST
[2018-07-16 16:32] VITALS: BP 145/80; PULSE 87; RESP 22; TEMP 99.5
--- NOTE | 2018-07-16 17:30 | P.HPIM ---
History of Present Illness Primary Care Physician: No Primary Care Physician Chief Complaint: Right Wrist Infection History of Present Illness: Mr. Renee is a 33-year-old male. He is coming to the hospital secondary to right wrist infection. Abscesses suspected. Patient had I&D performed in the ER. He had previously been on antibiotic, he is uncertain of the name. Overnight antibiotics are provided and the patient had clinical improvement with antibiotics. Pain is controlled. Patient has a history of IV drug abuse but denies any recent IV drug abuse and says he thinks is from a spider bite. No other complaints at this time. Inpatient Certification Inpatient Certification: I certify that the inpatient services were ordered in accordance with Medicare regulations governing the order. This includes certification that hospital inpatient services are reasonable and necessary and in the case of services not specified as inpatient-only under 42 CFR 419.22(n), that they are appropriately provided as inpatient services in accordance to with the 2-midnight benchmark under 43 CFR 412.3(e) Estimated Total Length of Stay (Days): 2 Plans for Post Hospital Care: Not yet determined Review of Systems Constitutional: No fevers, no chills no night sweats, no fatigue, no weakness Eyes: No eye pain, no blurry vision, no loss of vision ENT: No sore throat, no ear pain, no rhinorrhea Cardiovascular: No chest pain, no tachycardia, no palpitations, no syncope Respiratory: No wheezing, no cough, no shortness of breath Gastrointestinal: No abdominal pain, no black tarry stools, no bright red blood per rectum, no vomiting, no diarrhea Musculoskeletal: No joint pain, no muscle cramps, no stiffness Integumentary: No rash, no ulcers, no drainage, right wrist infection Neurologic: No sensory loss, no loss of motor function, no dizziness Psychiatric: No behavioral changes, no hallucinations, no suicidal ideations [facility] Medical History Medical History History of cyst of brain (Acute) Surgical History Surgical History History of surgery on arm (Acute) Family History Family History Other Osteoarthritis Social History Social History Substance History: Active Abuse Smoking Status: Current every day smoker Tobacco Type: Cigarettes How Often Do You Have a Drink Containing Alcohol: Never Recent Travel in [place] within the Last 8 Weeks: No Recent Out of Country Travel within the Last 8 Weeks: No Immunization History Tetanus Immunization: <5 Years (10/03/2017) Medications and Allergies Allergies Allergy/AdvReac Type Severity Reaction Status Date / Time codeine Allergy Severe Anaphylaxis Verified 07/15/18 22:15 sertraline Allergy Severe Shortness Verified 07/15/18 22:15 of Breath Home Medications Medication Instructions Recorded Confirmed Type buprenorphine-naloxone [Suboxone] 1 dose SUBLINGUAL DAILY 07/15/18 07/15/18 History Physical Exam Vital signs: Vital Signs 07/15/18 21:49 07/16/18 00:50 07/16/18 03:40 Temperature 99.8 F H Pulse Rate 98 H 74 73 Respiratory Rate 18 16 16 Blood Pressure 130/71 115/66 124/69 Pulse Oximetry 96 97 95 07/16/18 03:54 07/16/18 04:00 07/16/18 05:00 Temperature Pulse Rate 70 74 86 Respiratory Rate 4 L 14 15 Blood Pressure 113/79 Pulse Oximetry 07/16/18 08:00 07/16/18 09:36 07/16/18 12:07 Temperature 99.6 F 99.1 F Pulse Rate 86 81 Respiratory Rate 18 15 15 Blood Pressure 114/59 L 136/76 Pulse Oximetry 98 96 07/16/18 16:00 Temperature 99.5 F Pulse Rate 87 Respiratory Rate 22 Blood Pressure 145/80 H Pulse Oximetry 96 Intake & Output 07/15/18 07/16/18 07/16/18 18:59 06:59 18:59 Intake Total 2656 / 2656 1615 / 1615 Output Total 400 / 400 Balance 2256 / 2256 1615 / 1615 Weight 74.6 kg Intake: IV 2300 / 2300 1615 / 1615 NS Inj 1,000 ML @ 100 mls/hr IV 1000 / 1000 .CONT .Q10H [facility] Rx#:[id number] Maxipime Inj 1,000 MG In NS Inj 100 / 100 100 ML @ 200 mls/hr IV.SIG Q12H [facility]MAN Rx#:[id number] Cleocin 900 mg/NS Premix 900 mg 50 / 50 In 50 ml @ 100 mls/hr IV.SIG ONCE ONE Rx#:[id number] NS Inj 1,000 ML @ 1000 mls/hr 1999 / 1999 IV.SIG BOLUS HERMAN Rx#:[id number] Vancomycin Inj 1,000 MG In NS 250 / 250 Inj 250 ML @ 250 mls/hr IV.SIG ONCE ONE Rx#:[id number] Vancomycin Inj 1,500 MG In NS 515 / 515 Inj 500 ML @ 250 mls/hr IV.SIG Q12H [facility]MAN Rx#:[id number] Oral 356 / 356 Output: Urine 400 / 400 Other: Date of Last Bowel Movement 07/15/18 Narrative: GENERAL: NAD, A&Ox3 HEAD: Normocephalic. NECK: Supple, trachea midline. No lymphadenopathy. EYES: No scleral icterus. No injection or drainage. CARDIOVASCULAR: Regular rate and rhythm without murmurs, gallops, or rubs. RESPIRATORY: Breath sounds equal bilaterally. No accessory muscle use. GASTROINTESTINAL: Abdomen soft, non-tender, nondistended. MUSCULOSKELETAL: No cyanosis, or edema. SKIN: Warm and dry. Ulceration with mild drainage, status post I&D with laceration at right lateral wrist just proximal to the hand. NEURO: No focal neurological deficits. Results Labs CBC & Chem 7: 07/16/18 05:38 07/16/18 05:38 Imaging Impressions Wrist X-Ray 07/15/18 22:12 CONCLUSION: Extensive soft tissue swelling on the dorsum of the hand. Remote healed fracture of the fifth metacarpal. Wrist MRI 07/16/18 00:00 CONCLUSION: 1. Extensive abscess formation in the soft tissues of the distal forearm, wrist and metacarpal region of the hand with some measurements given above. The abscesses extend both superficial and deep to the extensor tendons overlying the metacarpals. There is a wrist joint effusion. No definite evidence for osteomyelitis. Caprini VTE Risk Assessment Caprini VTE Risk Assessment: No/Low Risk (score <= 1) Caprini Risk Assessment Model: Point Value = 1 Point Value = 2 Point Value = 3 Point Value = 5 Age 41-60 Minor surgery BMI > 25 kg/m2 Swollen legs Varicose veins or History of unexplained or recurrent spontaneous Oral contraceptives or hormone replacement Sepsis (< 1 month) Serious lung disease, including pneumonia (< 1 month) Abnormal pulmonary function Acute myocardial infarction Congestive heart failure (< 1 month) History of inflammatory bowel disease Medical patient at bed rest Age 61-74 Arthroscopic surgery Major open surgery (> 45 min) Laparoscopic surgery (> 45 min) Malignancy Confined to bed (> 72 hours) Immobilizing plaster cast Central venous access Age >= 75 History of VTE Family history of VTE Factor V Leiden Prothrombin [id number] Lupus anticoagulant Anticardiolipin antibodies Elevated serum homocysteine Heparin-induced thrombocytopenia Other congenital or acquired thrombophilia Stroke (< 1 month) Elective arthroplasty Hip, pelvis, or leg fracture Acute spinal cord injury (< 1 month) Prophylaxis Regimen: Total Risk Factor Score Risk Level Prophylaxis Regimen 0-1 Low Early ambulation 2 Moderate Order ONE of the following: *Sequential Compression Device (SCD) *Heparin 5000 units SQ BID 3-4 Higher Order ONE of the following medications: *Heparin 5000 units SQ TID *Enoxaparin/Lovenox 40 mg SQ daily (WT < 150 kg, CrCl > 30 mL/min) *Enoxaparin/Lovenox 30 mg SQ daily (WT < 150 kg, CrCl > 10-29 mL/min) *Enoxaparin/Lovenox 30 mg SQ BID (WT < 150 kg, CrCl > 30 mL/min) AND/OR *Sequential Compression Device (SCD) 5 or more Highest Order ONE of the following medications: *Heparin 5000 units SQ TID (Preferred with Epidurals) *Enoxaparin/Lovenox 40 mg SQ daily (WT < 150 kg, CrCl > 30 mL/min) *Enoxaparin/Lovenox 30 mg SQ daily (WT < 150 kg, CrCl > 10-29 mL/min) *Enoxaparin/Lovenox 30 mg SQ BID (WT < 150 kg, CrCl > 30 mL/min) AND *Sequential Compression Device (SCD) Assessment and Plan Plan 33-year-old male admitted secondary to abscess and cellulitis of the right wrist Right wrist abscess Right wrist cellulitis Vancomycin MRI forearm/wrist As needed pain treatments Follow blood cultures Further workup for infective endocarditis of blood cultures result is positive Follow wound cultures If MRI is positive further surgery will be necessary Narcotic dependence Polysubstance drug abuse Oral narcotics provided for pain here Suboxone on hold Patient counseled to quit drug abuse DVT prophylaxis SCDs
== END 2018-07-16 16:43 | disposition left against medical advice (07) | DRG 603 ==
LOC: PHED 20:45 → PHEDA 07-16 01:10 → PHICU 07-16 04:00 → PH3 07-16 14:50
PROVIDERS: ADMIT Hospitalist; ATTEND Hospitalist
CPT/HCPCS: 10060; 73110; 73223; 80048; 80053; 80307; 83605; 85025; 86403; 87040; 87070; 87186; 87205; 90761; 90765; 90775; 96361; 96365; 96375; 99285; A9585; J0692; J1885; J2060; J3370; J7030; J7040; J7050